=== PATIENT | female | born 1945 | race Caucasian/White ===

== ENCOUNTER 2016-08-27 04:39 | Emergency (ER) | payer MEDICARE, BC ==
[~2016-08-27] VITALS: Ht 160 cm; Wt 72.3 kg
[2016-08-27 05:28] VITALS: BP 168/69; PULSE 88; RESP 20; TEMP 98.4; O2SAT 98
--- NOTE | 2016-08-27 05:35 | PD ---
HPI Chief Complaint: Abdominal Pain Time Seen by Provider: 05:24 Travel History International Travel<30 days: No Contact w/Intl Traveler<30days: No Traveled to known affect area: No History of Present Illness HPI The patient is a 70-year-old female complains of midline epigastric pain radiating to her back since 2 AM this morning. She does have a history of irritable bowel syndrome which is mild. She does have nausea without vomiting or fever. She denies any melanotic or bloody stools. The patient takes Prevacid on a daily basis because of Sanford's esophagus. PFSH Social History Tobacco Use: No Allergies-Medications (Allergen,Severity, Reaction): Coded Allergies: No Known Allergies (Unverified , 08/27/16) Reported Meds & Prescriptions Reported Meds & Active Scripts Active Reported Prevacid (Lansoprazole) 15 Mg Capdr 15 Mg PO DAILY Zestril (Lisinopril) 20 Mg Tab 20 Mg PO DAILY Ultram (Tramadol HCl) 50 Mg Tab 50 Mg PO Q6H PRN Darragh (Hydrocodone-Acetaminophen) 5-325 mg Tab 1 Tab PO Q6H PRN Neurontin (Gabapentin) 300 Mg Cap 300 Mg PO TID Prednisone 5 Mg Tab 5 Mg PO DAILY Synthroid (Levothyroxine Sodium) 88 Mcg Tab 88 Mcg PO DAILY Review of Systems Except as stated in HPI: all other systems reviewed are Neg Physical Exam Narrative GENERAL: The patient is alert, oriented 3 in moderate apparent distress with her abdominal discomfort. Her vital signs show blood pressure 168/69 but are otherwise normal. SKIN: Warm and dry. HEAD: Atraumatic. Normocephalic. EYES: Pupils equal and round. No scleral icterus. No injection or drainage. ENT: No nasal bleeding or discharge. Mucous membranes pink and moist. NECK: Trachea midline. No JVD. CARDIOVASCULAR: Regular rate and rhythm. No murmur appreciated. RESPIRATORY: No accessory muscle use. Clear to auscultation. Breath sounds equal bilaterally. GASTROINTESTINAL: Abdomen soft, non-tender, nondistended. Hepatic and splenic margins not palpable. MUSCULOSKELETAL: No obvious deformities. No clubbing. No cyanosis. No edema. NEUROLOGICAL: Awake and alert. No obvious cranial nerve deficits. Motor grossly within normal limits. Normal speech. PSYCHIATRIC: Appropriate mood and affect; insight and judgment normal. Data Data Last Documented VS Vital Signs Date Time Temp Pulse Resp B/P Pulse Ox O2 Delivery O2 Flow Rate FiO2 08/27/16 07:16 18 08/27/16 06:19 79 155/59 97 08/27/16 05:28 98.4 Orders Complete Blood Count With Diff (08/27/16 05:37) Comprehensive Metabolic Panel (08/27/16 05:37) Lipase (08/27/16 05:37) Urinalysis - C+S If Indicated (08/27/16 05:37) Iv Access Insert/Monitor (08/27/16 05:37) Ecg Monitoring (08/27/16 05:37) Oximetry (08/27/16 05:37) Morphine Inj (Morphine Inj) (08/27/16 05:45) Ondansetron Inj (Zofran Inj) (08/27/16 05:45) Pantoprazole Inj (Protonix Inj) (08/27/16 05:45) Sodium Chlor 0.9% 1000 Ml Inj (Ns 1000 M (08/27/16 05:37) Sodium Chloride 0.9% Flush (Ns Flush) (08/27/16 05:45) Famotidine Inj (Pepcid Inj) (08/27/16 05:45) Al-Mag Hy-Si 40-40-4 Mg/Ml Liq (Mag-Al P (08/27/16 05:45) Lidocaine 2% Viscous (Xylocaine 2% Visco (08/27/16 05:45) Ct Abd/Pel W Iv Contrast(Rout) (08/27/16 06:19) Iohexol 350 Inj (Omnipaque 350 Inj) (08/27/16 06:53) Labs Laboratory Tests Test 08/27/16 08/27/16 05:50 06:05 Urine Color YELLOW Urine Turbidity CLEAR Urine pH 6.0 Urine Specific [place] 1.020 Urine Protein NEG mg/dL Urine Glucose (UA) NEG mg/dL Urine Ketones NEG mg/dL Urine Occult Blood LARGE Urine Nitrite NEG Urine Bilirubin NEG Urine Leukocyte Esterase SMALL Urine RBC 50-99 /hpf Urine WBC 3-5 /hpf Urine Squamous Epithelial 0-5 /hpf Cells Urine Bacteria OCC /hpf Microscopic Urinalysis Comment CULT NOT INDICATED White Blood Count 10.4 TH/MM3 Red Blood Count 4.23 MIL/MM3 Hemoglobin 13.3 GM/DL Hematocrit 39.4 % Mean Corpuscular Volume 93.2 FL Mean Corpuscular Hemoglobin 31.5 PG Mean Corpuscular Hemoglobin 33.8 % Concent Red Cell Distribution Width 11.8 % Platelet Count 322 TH/MM3 Mean Platelet Volume 7.7 FL Neutrophils (%) (Auto) 75.5 % Lymphocytes (%) (Auto) 15.6 % Monocytes (%) (Auto) 7.4 % Eosinophils (%) (Auto) 1.2 % Basophils (%) (Auto) 0.3 % Neutrophils # (Auto) 7.9 TH/MM3 Lymphocytes # (Auto) 1.6 TH/MM3 Monocytes # (Auto) 0.8 TH/MM3 Eosinophils # (Auto) 0.1 TH/MM3 Basophils # (Auto) 0.0 TH/MM3 CBC Comment DIFF FINAL Differential Comment Sodium Level 143 MEQ/L Potassium Level 3.6 MEQ/L Chloride Level 102 MEQ/L Carbon Dioxide Level 32.1 MEQ/L Anion Gap 9 MEQ/L Blood Urea Nitrogen 20 MG/DL Creatinine 0.82 MG/DL Estimat Glomerular Filtration 69 ML/MIN Rate Random Glucose 111 MG/DL Calcium Level 8.5 MG/DL Total Bilirubin 0.6 MG/DL Aspartate Amino Transf 145 U/L (AST/SGOT) Alanine Aminotransferase 80 U/L (ALT/SGPT) Alkaline Phosphatase 82 U/L Total Protein 6.9 GM/DL Albumin 3.4 GM/DL Lipase 115 U/L [facility] Medical Decision Making Medical Screen Exam Complete: Yes Emergency Medical Condition: Yes Medical Record Reviewed: Yes Interpretation(s) The complete metabolic profile shows a BUN of 20, glucose 111, total bilirubin 145, ALT 80 and bicarbonate 32.1. The lipase is normal. The CBC is normal except for 75.5% neutrophils. Differential Diagnosis Gastritis, pancreatitis, cholecystitis, pyelonephritis, colitis, electrolyte disorder, ulcer pain, abdominal pain etiology undetermined Narrative Course It is now [address] Fuller will take over the patient this time. Sherwin King MD Aug 27, 2016 05:35
[2016-08-27] MEDS ORDERED: SODIUM CHLOR 0.9% 1000 ML INJ 1,000 ML IV SCH (05:37)
[2016-08-27] MEDS ORDERED: FAMOTIDINE 20 MG/2 ML VIAL IV PUSH ONE (05:45)
[2016-08-27] MEDS ORDERED: LIDOCAINE VISCOUS 2% SOLN 15 ML UDC PO ONE (05:45)
[2016-08-27] MEDS ORDERED: PANTOPRAZOLE SODIUM 40 MG VIAL IVP ONE (05:45)
[2016-08-27] MEDS ORDERED: MORPHINE SULFATE 4 MG/ML INJ IV PUSH ONE (05:45)
[2016-08-27] MEDS ORDERED: SODIUM CHLORIDE 0.9% FLUSH 5 ML FLUSH IVF PRN (05:45)
[2016-08-27] MEDS ORDERED: ONDANSETRON HCL 4 MG/2 ML VIAL IVP ONE (05:45)
[2016-08-27] MEDS ORDERED: ALUMINUM/MAGNESIUM/SIMETH 30 ML CUP PO ONE (05:45)
[2016-08-27] MEDS ORDERED: NORC5TAB PO (05:51)
[2016-08-27] MEDS ORDERED: PRED5TAB PO (05:51)
[2016-08-27] MEDS ORDERED: ULTR50TA5 PO (05:51)
[2016-08-27] MEDS ORDERED: SYNT88TA PO (05:51)
[2016-08-27] MEDS ORDERED: PREV15CA15 PO (05:51)
[2016-08-27] MEDS ORDERED: LISI-591 PO (05:51)
[2016-08-27] MEDS ORDERED: NEUR300C PO (05:51)
[2016-08-27 06:11] LABS: AUTOMATED NEUTROPHIL # 7.9 TH/MM3 (1.8-7.7); BASOPHIL % 0.3 % (0.0-2.0); EOSINOPHIL # 0.1 TH/MM3 (0-0.4); EOSINOPHIL % 1.2 % (0.0-4.0); HEMATOCRIT 39.4 % (35.0-46.0); HEMO FLAGS DIFF FINAL; LYMPH % 15.6 % (9.0-44.0); LYMPHOCYTE # 1.6 TH/MM3 (1.0-4.8); MEAN CELL VOLUME 93.2 FL (80.0-100.0); MEAN CORPUSCULAR HEMOGLOBIN 31.5 PG (27.0-34.0); MEAN CORPUSCULAR HGB CONC 33.8 % (32.0-36.0); MONO % 7.4 % (0.0-8.0); NEUT % 75.5 % (16.0-70.0); PLATELET COUNT 322 TH/MM3 (150-450); RED BLOOD COUNT 4.23 MIL/MM3 (4.00-5.30); RED CELL DISTRIBUTION WIDTH 11.8 % (11.6-17.2); WHITE BLOOD COUNT 10.4 TH/MM3 (4.0-11.0)
[2016-08-27 06:12] LABS: BLOOD, URINE LARGE (NEG); GLUCOSE,URINE NEG (NEG); KETONE, URINE NEG (NEG); NITRITE,URINE NEG (NEG)
[2016-08-27 06:17] LABS: CHLORIDE 102 MEQ/L (98-107); POTASSIUM 3.6 MEQ/L (3.5-5.1); SODIUM (NA) 143 MEQ/L (136-145)
[2016-08-27 06:17] LABS: URINE COLOR YELLOW (YELLW/STRAW)
[2016-08-27 06:18] LABS: SQUAMOUS EPITHELIAL CELL URINE 0-5 /hpf (0-5)
[2016-08-27 06:19] VITALS: BP 155/59; PULSE 79; RESP 20; O2SAT 97
[2016-08-27 06:19] LABS: BACTERIA, URINE OCC /hpf; COMMENT (UR) CULT NOT INDICATED; CULTURE IF INDICATED CULT NOT INDICATED
[2016-08-27 06:21] LABS: ANION GAP 9 MEQ/L (5-15); BICARBONATE 32.1 MEQ/L (21.0-32.0); BLOOD UREA NITROGEN 20 MG/DL (7-18)
[2016-08-27 06:24] LABS: ALT (GPT) 80 U/L (10-53); AST (GOT) 145 U/L (15-37); GLOMERULAR FILTRATION RATE 69 ML/MIN (>89)
[2016-08-27 06:25] LABS: TOTAL BILIRUBIN ADULT 0.6 MG/DL (0.2-1.0)
[2016-08-27 06:27] LABS: ALKALINE PHOSPHATASE 82 U/L (45-117)
[2016-08-27] MEDS ORDERED: IOHEXOL 350 MG/ML 10 ML VIAL (for RAD DIAG) IV ONE (06:53)
[2016-08-27 07:18] VITALS: BP 158/64; PULSE 95; RESP 18; O2SAT 95
--- NOTE | 2016-08-27 07:28 | RADHPO ---
EXAM DATE/TIME: 08/27/2016 06:47 [place] COMPARISON: No previous studies available for comparison. INDICATIONS : Abdominal pain, nausea, and diarrhea today. IV CONTRAST: 75 cc Omnipaque 350 (iohexol) IV ORAL CONTRAST: No oral contrast ingested. RADIATION DOSE: 16.86 CTDIvol (mGy) MEDICAL HISTORY : Hypertension. SURGICAL HISTORY : None. ENCOUNTER: Initial ACUITY: 1 day PAIN SCALE: 8/10 LOCATION: abdomen TECHNIQUE: Volumetric scanning of the abdomen and pelvis was performed. Using automated exposure control and ad justment of the mA and/or kV according to patient size, radiation dose was kept as low as reasonably achievable to obtain optimal diagnostic quality images. FINDINGS: LOWER LUNGS: The visualized lower lungs are clear. LIVER: Homogeneous density without lesion. There is mild dilation of the biliary tree. No calcified gallst ones. SPLEEN: Normal size without lesion. PANCREAS: Within normal limits. KIDNEYS: Normal in size and shape. There is no mass, stone or hydronephrosis. ADRENAL GLANDS: Within normal limits. VASCULAR: There is no aortic aneurysm. BOWEL/MESENTERY: There is diverticulosis throughout the colon. Area of wall thickening versus nondistention of the radha cending and sigmoid colon noted.. There is no free intraperitoneal air or fluid. ABDOMINAL WALL: Within normal limits. RETROPERITONEUM: There is no lymphadenopathy. BLADDER: No wall thickening or mass. REPRODUCTIVE: Within normal limits. INGUINAL: There is no lymphadenopathy or hernia. MUSCULOSKELETAL: Within normal limits for patient age. CONCLUSION: 1. Diverticulosis of the colon. Areas of nondistention versus less likely wall thickening of descendi ng and sigmoid colon. A mild degree of diverticulitis cannot be excluded. 2. Remainder of the abdomen is otherwise unremarkable. Jay Okeefe MD on August 27, 2016 at 7:20 Board Certified Radiologist. This report was verified electronically.
[2016-08-27] MEDS ORDERED: AUGM875T PO (08:03)
--- NOTE | 2016-08-27 08:04 | PD ---
Data Data Last Documented VS Vital Signs Date Time Temp Pulse Resp B/P Pulse Ox O2 Delivery O2 Flow Rate FiO2 08/27/16 07:18 95 18 158/64 95 Room Air 08/27/16 05:28 98.4 Orders Complete Blood Count With Diff (08/27/16 05:37) Comprehensive Metabolic Panel (08/27/16 05:37) Lipase (08/27/16 05:37) Urinalysis - C+S If Indicated (08/27/16 05:37) Iv Access Insert/Monitor (08/27/16 05:37) Ecg Monitoring (08/27/16 05:37) Oximetry (08/27/16 05:37) Morphine Inj (Morphine Inj) (08/27/16 05:45) Ondansetron Inj (Zofran Inj) (08/27/16 05:45) Pantoprazole Inj (Protonix Inj) (08/27/16 05:45) Sodium Chlor 0.9% 1000 Ml Inj (Ns 1000 M (08/27/16 05:37) Sodium Chloride 0.9% Flush (Ns Flush) (08/27/16 05:45) Famotidine Inj (Pepcid Inj) (08/27/16 05:45) Al-Mag Hy-Si 40-40-4 Mg/Ml Liq (Mag-Al P (08/27/16 05:45) Lidocaine 2% Viscous (Xylocaine 2% Visco (08/27/16 05:45) Ct Abd/Pel W Iv Contrast(Rout) (08/27/16 06:19) Iohexol 350 Inj (Omnipaque 350 Inj) (08/27/16 06:53) Labs Laboratory Tests Test 08/27/16 08/27/16 05:50 06:05 Urine Color YELLOW Urine Turbidity CLEAR Urine pH 6.0 Urine Specific [place] 1.020 Urine Protein NEG mg/dL Urine Glucose (UA) NEG mg/dL Urine Ketones NEG mg/dL Urine Occult Blood LARGE Urine Nitrite NEG Urine Bilirubin NEG Urine Leukocyte Esterase SMALL Urine RBC 50-99 /hpf Urine WBC 3-5 /hpf Urine Squamous Epithelial 0-5 /hpf Cells Urine Bacteria OCC /hpf Microscopic Urinalysis Comment CULT NOT INDICATED White Blood Count 10.4 TH/MM3 Red Blood Count 4.23 MIL/MM3 Hemoglobin 13.3 GM/DL Hematocrit 39.4 % Mean Corpuscular Volume 93.2 FL Mean Corpuscular Hemoglobin 31.5 PG Mean Corpuscular Hemoglobin 33.8 % Concent Red Cell Distribution Width 11.8 % Platelet Count 322 TH/MM3 Mean Platelet Volume 7.7 FL Neutrophils (%) (Auto) 75.5 % Lymphocytes (%) (Auto) 15.6 % Monocytes (%) (Auto) 7.4 % Eosinophils (%) (Auto) 1.2 % Basophils (%) (Auto) 0.3 % Neutrophils # (Auto) 7.9 TH/MM3 Lymphocytes # (Auto) 1.6 TH/MM3 Monocytes # (Auto) 0.8 TH/MM3 Eosinophils # (Auto) 0.1 TH/MM3 Basophils # (Auto) 0.0 TH/MM3 CBC Comment DIFF FINAL Differential Comment Sodium Level 143 MEQ/L Potassium Level 3.6 MEQ/L Chloride Level 102 MEQ/L Carbon Dioxide Level 32.1 MEQ/L Anion Gap 9 MEQ/L Blood Urea Nitrogen 20 MG/DL Creatinine 0.82 MG/DL Estimat Glomerular Filtration 69 ML/MIN Rate Random Glucose 111 MG/DL Calcium Level 8.5 MG/DL Total Bilirubin 0.6 MG/DL Aspartate Amino Transf 145 U/L (AST/SGOT) Alanine Aminotransferase 80 U/L (ALT/SGPT) Alkaline Phosphatase 82 U/L Total Protein 6.9 GM/DL Albumin 3.4 GM/DL Lipase 115 U/L MDM Supervised Visit with LAMAR: No Narrative Course Assumed care of patient from Dr. King. 70 year-old woman diffuse abdominal pain, severe, starting today. History of chronic pain as well as some chronic abdominal pain. Microscopic hematuria is known and followed up by her primary doctor. CT scan shows generally unremarkable abdomen, some diverticulosis, and some areas of colon thickening that could suggest early diverticulitis. Patient feeling much improved. She's had diverticulitis in the past. We'll treat her for early diverticulitis. Continue her home opiates. Use Bentyl as needed. They agree to return for any worsening abdominal pain, bloody diarrhea, or fevers or chills. Diagnosis Primary Impression: Abdominal pain Qualified Code: R10.30 - Lower abdominal pain Additional Impression: Diverticulitis Qualified Code: K57.32 - Diverticulitis of large intestine without perforation or abscess without bleeding Additional Instruction: Take antibiotics as prescribed. Follow-up with your primary doctor soon as you return home. Return to the emergency department for any worsening abdominal pain, fevers, bloody diarrhea, or any other new or worsening symptoms. Med/Other Pt SpecificInfo: Prescription(s) given Scripts Amoxicillin-Clavulanate (Augmentin)875-125 mg [id number] Mg PO BID 7 Days not for use in CrCl <30 ml/min. Prov:Matt Fuller MD 08/27/16 Disposition: 01 DISCHARGE HOME Condition: Stable Matt Fuller MD Aug 27, 2016 08:04
== END 2016-08-27 08:26 | disposition home or self-care (01) ==
LOC: PHED 04:39
DX: R10.30 Lower abdominal pain, unspecified (principal); K57.32 Diverticulitis of large intestine without perforation or abscess without bleeding; K22.70 Barrett's esophagus without dysplasia; K58.9 Irritable bowel syndrome, unspecified
CPT/HCPCS: 74177; 80053; 81001; 83690; 85025; 96374; 96375; 99284; C9113; J2270; J2405; J7030; Q9967